=== PATIENT | female | born 1955 | race Caucasian/White ===

== ENCOUNTER 2019-01-17 10:11 | Inpatient (IN) ==
[2019-01-17] MEDS ORDERED: ONDANSETRON 4 MG/2 ML VIAL IV STA (12:09)
[2019-01-17] MEDS ORDERED: ASPIRIN 325 MG TABLET PO STA (12:09)
[2019-01-17] MEDS ORDERED: NITROGLYCERIN 2% OINT 1 INCH/GM PACK TOP STA (12:09)
[2019-01-17] MEDS ORDERED: ALUM/MAG/SIMETH/LIDO VISC 1:1 30 ML BOTTLE PO STA (12:09)
[2019-01-17] MEDS ORDERED: MORPHINE 4 MG/1 ML VIAL IV STA (12:09)
[2019-01-17 12:19] LABS: Basophils % 0.5 % (0.0-0.8); Eosinophils # 0.2 10*3/uL (0.0-0.87); Eosinophils % 2.5 % (0.00-10.9); Hematocrit 43.4 VOL% (35.7-47.0); Hemoglobin 14.1 GM/DL (12.0-16.0); Immature Granulocytes % 0.5 %; Immature Granulocytes Absolute 0.04 #; Lymphocytes % 22.7 % (21.3-54.2); Mean Corpuscular HGB Conc 32.5 GM/DL (32-36); Mean Corpuscular Volume 95.4 FL (87-102); Mean Platelet Volume 9.6 FL (9.6-12.0); Monocytes % 8.6 % (1.7-12.7); Neutrophils % 65.2 % (38.7-73.9); Platelet Count 243 T/CUMM (130-400); Red Blood Count 4.55 MC/CUMM (3.8-5.5); Red Cell Distribution Width 13.2 % (9.3-17.3); White Blood Count 8.8 T/CUMM (4-12)
[2019-01-17 12:30] LABS: INR 0.9; PT Patient Result 10.2 SECS
[2019-01-17 12:35] LABS: Albumin 3.8 G/DL (3.4-5.0); Bilirubin,Total 0.6 MG/DL (0.2-1.0); Calcium 9.3 MG/DL (8.5-10.1); Osmolality,Calculated 284.1 MOS/KG (273-304)
[2019-01-17 13:06] LABS: Barbiturates Screen,Urine Negative (Negative); Benzodiazepines Screen,Urine Negative (Negative); Cannabinoid Screen,Urine Negative (Negative); Opiate Screen,Urine Negative (Negative); Phencyclidine Screen,Urine Negative (Negative)
[2019-01-17 13:08] LABS: Apearance,Urine CLEAR (Clear); Bilirubin,Urine Negative (Negative); Blood, Urine Negative (Negative); Glucose,Urine (UA) Negative (Negative); Ketones,Urine Negative (Negative); Nitrite,Urine Negative (Negative); Protein,Urine Negative; RBC,Urine 2 /HPF (0-4); Squamous Epithelial Cell,Urine Occasional /HPF (0-10); Urine Color Yellow (Yellow); Urine Urobilinogen < 2.0 EU/DL (0.2-1.0); WBC,Urine 1 /HPF (0-6)
[2019-01-17 14:10] LABS: Troponin I < 0.015 NG/ML (0.00-0.045)
[2019-01-17] MEDS: CLOPIDOGREL 75 MG TABLET PO SCH (14:10)
[2019-01-17] MEDS ORDERED: ZALEPLON 5 MG CAPSULE PO PRN (14:34)
[2019-01-17] MEDS ORDERED: MAGNESIUM SULF RIDER 2 GM in PREMIX 1 EACH IV PRN (14:34)
[2019-01-17] MEDS ORDERED: guaiFENesin/DM ER 600-30 MG TABLET PO PRN (14:34)
[2019-01-17] MEDS ORDERED: POTASSIUM CHLORIDE 20 MEQ TABLET PO PRN (14:34)
[2019-01-17] MEDS ORDERED: BISACODYL 5 MG TABLET PO PRN (14:34)
[2019-01-17] MEDS ORDERED: ACETAMINOPHEN 325 MG TABLET PO PRN (14:34)
[2019-01-17] MEDS ORDERED: MORPHINE 4 MG/1 ML VIAL IV PRN (14:34)
[2019-01-17] MEDS ORDERED: MAGNESIUM SULF RIDER 4 GM in PREMIX 1 EACH IV PRN (14:34)
[2019-01-17] MEDS ORDERED: diphenhydrAMINE CAP 25 MG CAPSULE PO PRN (14:34)
[2019-01-17] MEDS ORDERED: DOCUSATE SODIUM 100 MG CAPSULE PO PRN (14:34)
[2019-01-17] MEDS ORDERED: ONDANSETRON 4 MG/2 ML VIAL IV PRN (14:34)
[2019-01-17] MEDS ORDERED: MINERAL OIL/PETROLATUM OPH OINT 3.5 GM TUBE BOTH EYES PRN (14:42)
[2019-01-17] MEDS ORDERED: DEXTROSE 10% 25 GM/250 ML BAG IV PRN (14:47)
[2019-01-17] MEDS ORDERED: GLUCAGON 1 MG VIAL IM PRN (14:47)
[2019-01-17] MEDS ORDERED: hydrALAZINE 20 MG/1 ML VIAL IV PRN (15:45)
[2019-01-17 16:39] LABS: Troponin I < 0.015 NG/ML (0.00-0.045)
[2019-01-17] MEDS: NICOTINE 21 MG/24 HR PATCH TRANSDERM SCH (16:55)
[2019-01-17] MEDS: INSULIN LISPRO 100 UNIT/ML SUBCUT SCH (18:46)
[2019-01-17] MEDS: NITROGLYCERIN 2% OINT 1 INCH/GM PACK TOP SCH (19:00)
[2019-01-17] MEDS: ENOXAPARIN 80 MG/0.8 ML SYRINGE SUBCUT SCH (19:00)
[2019-01-17 21:05] LABS: Troponin I < 0.015 NG/ML (0.00-0.045)
[2019-01-17] MEDS: LOSARTAN/HCTZ 50-12.5 MG TABLET PO SCH (23:57)
[2019-01-17] MEDS: tiZANidine 4 MG TABLET PO SCH (23:57)
[2019-01-17] MEDS: MELOXICAM 7.5 MG TABLET PO SCH (23:58)
[2019-01-17] MEDS: glipiZIDE 10 MG TABLET PO SCH (23:58)
[2019-01-17] MEDS: ATORVASTATIN 40 MG TABLET PO SCH (23:58)
[2019-01-17] MEDS: CARVEDILOL 12.5 MG TABLET PO SCH (23:58)
[2019-01-18] MEDS: INSULIN LISPRO 100 UNIT/ML SUBCUT SCH ×5 (00:01→21:50)
[2019-01-18] MEDS: NITROGLYCERIN 2% OINT 1 INCH/GM PACK TOP SCH ×4 (02:22→17:23)
[2019-01-18] MEDS: ENOXAPARIN 80 MG/0.8 ML SYRINGE SUBCUT SCH ×2 (03:30→16:05)
[2019-01-18 04:22] LABS: Basophils # 0.1 10*3/uL (0.0-0.2); Basophils % 0.5 % (0.0-0.8); Eosinophils # 0.3 10*3/uL (0.0-0.87); Hematocrit 39.3 VOL% (35.7-47.0); Hemoglobin 13.2 GM/DL (12.0-16.0); Immature Granulocytes % 0.2 %; Immature Granulocytes Absolute 0.02 #; Lymphocytes # 2.9 10*3/uL (1.4-4.0); Mean Corpuscular HGB Conc 33.6 GM/DL (32-36); Mean Corpuscular Volume 95.6 FL (87-102); Mean Platelet Volume 9.2 FL (9.6-12.0); Monocytes % 9.3 % (1.7-12.7); Platelet Count 215 T/CUMM (130-400); Red Blood Count 4.11 MC/CUMM (3.8-5.5); Red Cell Distribution Width 13.1 % (9.3-17.3); White Blood Count 9.4 T/CUMM (4-12)
[2019-01-18 04:42] LABS: Troponin I < 0.015 NG/ML (0.00-0.045)
[2019-01-18 05:06] LABS: Calcium 9.2 MG/DL (8.5-10.1); Osmolality,Calculated 278.7 MOS/KG (273-304); Risk Ratio 4.27; Thyroid Stimulating Hormone 7.76 uIU/ml (0.358-3.74); VLDL CHOLESTEROL 59.4 MG/DL
[2019-01-18] MEDS: tiZANidine 4 MG TABLET PO SCH ×3 (08:06→21:51)
[2019-01-18] MEDS ORDERED: diphenhydrAMINE CAP 25 MG CAPSULE PO ONE (08:47)
[2019-01-18] MEDS ORDERED: DIAZEPAM 5 MG TABLET PO ONE (08:47)
[2019-01-18] MEDS ORDERED: MAGNESIUM SULF RIDER 2 GM in PREMIX 1 EACH IV PRN (08:47)
[2019-01-18] MEDS ORDERED: POTASSIUM CHLORIDE RIDER 10 MEQ in PREMIX 1 EACH IV PRN (08:47)
[2019-01-18] MEDS ORDERED: PANTOPRAZOLE 40 MG TABLET PO SCH (09:00)
[2019-01-18] MEDS: ASPIRIN EC 81 MG TABLET PO SCH (10:00)
[2019-01-18] MEDS: glipiZIDE 10 MG TABLET PO SCH ×3 (10:01→21:50)
[2019-01-18] MEDS: CARVEDILOL 12.5 MG TABLET PO SCH ×2 (10:01→21:51)
[2019-01-18] MEDS: LOSARTAN/HCTZ 50-12.5 MG TABLET PO SCH (10:01)
[2019-01-18] MEDS: COENZYME Q10 100 MG CAPSULE PO SCH (10:01)
[2019-01-18] MEDS: CLOPIDOGREL 75 MG TABLET PO SCH (10:02)
[2019-01-18] MEDS: POTASSIUM GLUCONATE 500 MG TABLET PO SCH (10:02)
[2019-01-18] MEDS: SODIUM CHLORIDE 0.9% 1,000 ML IV SCH ×2 (10:02→18:48)
[2019-01-18] MEDS: OMEGA 3 ACID ETHYL ESTERS 1 GM CAPSULE PO SCH (10:02)
[2019-01-18] MEDS: MELOXICAM 7.5 MG TABLET PO SCH ×2 (10:02→21:50)
[2019-01-18] MEDS: PANTOPRAZOLE 40 MG TABLET PO SCH (10:03)
[2019-01-18] MEDS: CHOLECALCIFEROL 400 UNIT TABLET PO SCH (10:03)
[2019-01-18] MEDS: NICOTINE 21 MG/24 HR PATCH TRANSDERM SCH (10:12)
[2019-01-18] MEDS ORDERED: LIDOCAINE 1% 20 ML VIAL ONE (14:15)
[2019-01-18] MEDS ORDERED: MIDAZOLAM 2 MG/2 ML VIAL ONE (14:16)
[2019-01-18] MEDS ORDERED: VERAPAMIL 5 MG/2 ML VIAL ONE ×2 (14:16→14:53)
[2019-01-18] MEDS ORDERED: NITROGLYCERIN DRIP 50 MG/250 ML BOTTLE IV ONE (14:16)
[2019-01-18] MEDS ORDERED: HYDROmorphone 2 MG/1 ML VIAL ONE ×2 (14:16→15:13)
[2019-01-18] MEDS ORDERED: ENOXAPARIN 60 MG/0.6 ML SYRINGE ONE (14:43)
[2019-01-18] MEDS ORDERED: hydrALAZINE 20 MG/1 ML VIAL ONE (14:51)
[2019-01-18] MEDS ORDERED: CLOPIDOGREL 300 MG TABLET ONE (15:20)
[2019-01-18] MEDS ORDERED: ALUM/MAG/SIMETH/LIDO VISC 1:1 30 ML BOTTLE PO ONE (15:51)
[2019-01-18] MEDS: ATORVASTATIN 40 MG TABLET PO SCH (21:56)
[2019-01-19] MEDS: NITROGLYCERIN 2% OINT 1 INCH/GM PACK TOP SCH ×2 (00:22→06:30)
[2019-01-19 03:09] LABS: Basophils % 0.3 % (0.0-0.8); Eosinophils # 0.1 10*3/uL (0.0-0.87); Eosinophils % 1.2 % (0.00-10.9); Hematocrit 39.2 VOL% (35.7-47.0); Immature Granulocytes % 0.3 %; Immature Granulocytes Absolute 0.04 #; Lymphocytes # 2.6 10*3/uL (1.4-4.0); Lymphocytes % 22.7 % (21.3-54.2); Mean Corpuscular HGB Conc 33.2 GM/DL (32-36); Mean Corpuscular Volume 95.4 FL (87-102); Mean Platelet Volume 9.1 FL (9.6-12.0); Monocytes % 9.2 % (1.7-12.7); Neutrophils % 66.3 % (38.7-73.9); Platelet Count 209 T/CUMM (130-400); Red Blood Count 4.11 MC/CUMM (3.8-5.5); White Blood Count 11.5 T/CUMM (4-12)
[2019-01-19 03:29] LABS: Calcium 8.3 MG/DL (8.5-10.1); Osmolality,Calculated 280.4 MOS/KG (273-304)
[2019-01-19] MEDS: SODIUM CHLORIDE 0.9% 1,000 ML IV SCH (04:48)
[2019-01-19] MEDS: ENOXAPARIN 80 MG/0.8 ML SYRINGE SUBCUT SCH (05:00)
[2019-01-19] MEDS: tiZANidine 4 MG TABLET PO SCH (06:30)
[2019-01-19] MEDS ORDERED: ALUM/MAG/SIMETH/LIDO VISC 1:1 30 ML BOTTLE PO ONE (08:36)
[2019-01-19] MEDS: CHOLECALCIFEROL 400 UNIT TABLET PO SCH (09:02)
[2019-01-19] MEDS: ASPIRIN EC 81 MG TABLET PO SCH (09:02)
[2019-01-19] MEDS: MELOXICAM 7.5 MG TABLET PO SCH (09:02)
[2019-01-19] MEDS: POTASSIUM GLUCONATE 500 MG TABLET PO SCH (09:02)
[2019-01-19] MEDS: LOSARTAN/HCTZ 50-12.5 MG TABLET PO SCH (09:02)
[2019-01-19] MEDS: CARVEDILOL 12.5 MG TABLET PO SCH (09:03)
[2019-01-19] MEDS: CLOPIDOGREL 75 MG TABLET PO SCH (09:03)
[2019-01-19] MEDS: NICOTINE 21 MG/24 HR PATCH TRANSDERM SCH (09:03)
[2019-01-19] MEDS: glipiZIDE 10 MG TABLET PO SCH (09:03)
[2019-01-19] MEDS: OMEGA 3 ACID ETHYL ESTERS 1 GM CAPSULE PO SCH (09:03)
[2019-01-19] MEDS: COENZYME Q10 100 MG CAPSULE PO SCH (09:05)
[2019-01-19] MEDS: INSULIN LISPRO 100 UNIT/ML SUBCUT SCH (09:10)
[2019-01-19] MEDS: PANTOPRAZOLE 40 MG TABLET PO SCH (10:10)
[2019-01-19 12:00] VITALS: BP 160/74
== END 2019-01-19 12:57 | disposition home or self-care (01) | DRG 247 ==
LOC: N.ED 10:11 → N.EDINP 14:34 → N.TELEN 19:11
PROVIDERS: ADMIT Internal Medicine Cardiovascular Disease; ATTEND Internal Medicine Cardiovascular Disease
PROC: CLCCHCL (ICD-10-PCS; 2019-01-18 14:15)

== ENCOUNTER 2019-09-28 06:16 | Inpatient (IN) ==
[2019-09-28] MEDS ORDERED: MAGNESIUM SULF RIDER 2 GM in PREMIX 1 EACH IV PRN (08:08)
[2019-09-28] MEDS ORDERED: ASPIRIN 325 MG TABLET PO ONE (08:08)
[2019-09-28] MEDS ORDERED: diphenhydrAMINE CAP 25 MG CAPSULE PO ONE (08:08)
[2019-09-28] MEDS ORDERED: POTASSIUM CHLORIDE RIDER 10 MEQ in PREMIX 1 EACH IV PRN (08:08)
[2019-09-28] MEDS ORDERED: DIAZEPAM 5 MG TABLET PO ONE (08:08)
[2019-09-28] MEDS ORDERED: diphenhydrAMINE CAP 25 MG CAPSULE ONE (08:20)
[2019-09-28] MEDS ORDERED: DIAZEPAM 5 MG TABLET ONE (08:20)
[2019-09-28] MEDS ORDERED: ASPIRIN 325 MG TABLET ONE (08:20)
[2019-09-28] MEDS: SODIUM CHLORIDE 0.9% 1,000 ML IV SCH ×2 (08:21→20:34)
[2019-09-28] MEDS ORDERED: LIDOCAINE 1% 20 ML VIAL ONE (11:41)
[2019-09-28] MEDS ORDERED: HYDROmorphone 2 MG/1 ML VIAL ONE ×2 (11:42→13:02)
[2019-09-28] MEDS ORDERED: MIDAZOLAM 2 MG/2 ML VIAL ONE (11:43)
[2019-09-28] MEDS ORDERED: HEPARIN 5,000 UNIT/1 ML VIAL ONE (12:19)
[2019-09-28] MEDS ORDERED: CLOPIDOGREL 300 MG TABLET ONE (13:07)
[2019-09-28] MEDS ORDERED: ZALEPLON 5 MG CAPSULE PO PRN (13:13)
[2019-09-28] MEDS ORDERED: NITROGLYCERIN SL 0.4 MG TABLET SL PRN (13:13)
[2019-09-28] MEDS: traMADol 50 MG TABLET PO PRN (15:08)
[2019-09-28] MEDS: tiZANidine 4 MG TABLET PO SCH ×2 (15:08→21:30)
[2019-09-28] MEDS ORDERED: NICOTINE 21 MG/24 HR PATCH TRANSDERM PRN (18:15)
[2019-09-28] MEDS: ONDANSETRON 4 MG/2 ML VIAL IV PRN (18:18)
[2019-09-28] MEDS: GABAPENTIN 300 MG CAPSULE PO SCH (20:27)
[2019-09-28] MEDS: carvediloL 6.25 MG TABLET PO SCH (20:27)
[2019-09-29] MEDS: ONDANSETRON 4 MG/2 ML VIAL IV PRN ×2 (02:46→08:19)
[2019-09-29] MEDS: traMADol 50 MG TABLET PO PRN ×3 (02:47→18:52)
[2019-09-29] MEDS: SIMETHICONE CHEW 125 MG TABLET PO PRN ×2 (03:47→08:19)
[2019-09-29 05:32] LABS: Basophils # 0.1 10*3/uL (0.0-0.2); Basophils % 0.4 % (0.0-0.8); Eosinophils # 0.1 10*3/uL (0.0-0.87); Hematocrit 37.5 VOL% (35.7-47.0); Hemoglobin 12.7 GM/DL (12.0-16.0); Immature Granulocytes % 0.4 %; Immature Granulocytes Absolute 0.06 #; Lymphocytes # 2.4 10*3/uL (1.4-4.0); Lymphocytes % 17.3 % (21.3-54.2); Mean Corpuscular HGB Conc 33.9 GM/DL (32-36); Mean Corpuscular Volume 94.7 FL (87-102); Mean Platelet Volume 9.3 FL (9.6-12.0); Monocytes % 8.8 % (1.7-12.7); Neutrophils % 72.1 % (38.7-73.9); Platelet Count 240 T/CUMM (130-400); Red Blood Count 3.96 MC/CUMM (3.8-5.5); Red Cell Distribution Width 13.9 % (9.3-17.3); White Blood Count 13.8 T/CUMM (4-12)
[2019-09-29 05:43] LABS: Calcium 9.2 MG/DL (8.5-10.1); Osmolality,Calculated 270.2 MOS/KG (273-304)
[2019-09-29] MEDS: tiZANidine 4 MG TABLET PO SCH ×4 (06:02→21:30)
[2019-09-29] MEDS ORDERED: PANTOPRAZOLE 40 MG TABLET PO ONE (06:05)
[2019-09-29] MEDS: PANTOPRAZOLE 40 MG TABLET PO SCH ×2 (06:06→08:38)
[2019-09-29] MEDS: POTASSIUM GLUCONATE 500 MG TABLET PO SCH (08:19)
[2019-09-29] MEDS: carvediloL 6.25 MG TABLET PO SCH ×2 (08:19→20:14)
[2019-09-29] MEDS: ROSUVASTATIN 20 MG TABLET PO SCH (08:19)
[2019-09-29] MEDS: GABAPENTIN 300 MG CAPSULE PO SCH ×2 (08:19→20:13)
[2019-09-29] MEDS: SODIUM CHLORIDE 0.9% 1,000 ML IV SCH (08:35)
[2019-09-29] MEDS ORDERED: CLOPIDOGREL 75 MG TABLET PO SCH (09:00)
[2019-09-29] MEDS ORDERED: ASPIRIN EC 81 MG TABLET PO SCH (09:00)
[2019-09-29] MEDS ORDERED: GLUCAGON 1 MG VIAL IM PRN (11:21)
[2019-09-29] MEDS ORDERED: DEXTROSE 10% 250 ML BAG IV PRN (11:21)
[2019-09-29 11:34] LABS: Hematocrit 36.3 VOL% (35.7-47.0); Hemoglobin 12.2 GM/DL (12.0-16.0)
[2019-09-29] MEDS: INSULIN LISPRO 100 UNIT/ML SUBCUT SCH ×3 (12:55→20:16)
[2019-09-29] MEDS ORDERED: THROMBIN TOPICAL (RECOMBINANT) 5,000 UNIT VIAL TOP ONE (14:03)
[2019-09-30] MEDS: traMADol 50 MG TABLET PO PRN (01:29)
[2019-09-30] MEDS: tiZANidine 4 MG TABLET PO SCH ×2 (05:54→15:17)
[2019-09-30 06:13] LABS: Basophils # 0.1 10*3/uL (0.0-0.2); Basophils % 0.5 % (0.0-0.8); Eosinophils # 0.2 10*3/uL (0.0-0.87); Eosinophils % 1.4 % (0.00-10.9); Hematocrit 34.2 VOL% (35.7-47.0); Hemoglobin 11.4 GM/DL (12.0-16.0); Immature Granulocytes % 0.4 %; Immature Granulocytes Absolute 0.04 #; Lymphocytes # 2.9 10*3/uL (1.4-4.0); Lymphocytes % 25.8 % (21.3-54.2); Mean Corpuscular HGB Conc 33.3 GM/DL (32-36); Mean Corpuscular Volume 95.8 FL (87-102); Mean Platelet Volume 9.3 FL (9.6-12.0); Monocytes % 12.2 % (1.7-12.7); Neutrophils % 59.7 % (38.7-73.9); Platelet Count 193 T/CUMM (130-400); Red Blood Count 3.57 MC/CUMM (3.8-5.5); White Blood Count 11.1 T/CUMM (4-12)
[2019-09-30 06:29] LABS: Calcium 8.6 MG/DL (8.5-10.1); Osmolality,Calculated 274.7 MOS/KG (273-304)
[2019-09-30] MEDS: INSULIN LISPRO 100 UNIT/ML SUBCUT SCH ×2 (07:36→11:58)
[2019-09-30] MEDS: ROSUVASTATIN 20 MG TABLET PO SCH (08:41)
[2019-09-30] MEDS: carvediloL 6.25 MG TABLET PO SCH (08:41)
[2019-09-30] MEDS: POTASSIUM GLUCONATE 500 MG TABLET PO SCH (08:41)
[2019-09-30] MEDS: PANTOPRAZOLE 40 MG TABLET PO SCH (08:41)
[2019-09-30] MEDS: GABAPENTIN 300 MG CAPSULE PO SCH (08:41)
[2019-09-30] MEDS ORDERED: CETIRIZINE 10 MG TABLET PO SCH (10:30)
[2019-09-30 12:00] VITALS: BP 111/74
== END 2019-09-30 15:55 | disposition home or self-care (01) | DRG 253 ==
LOC: N.CL 06:16 → N.4E 13:48
PROVIDERS: ADMIT Internal Medicine Cardiovascular Disease; ATTEND Internal Medicine Cardiovascular Disease